=== PATIENT | male | born 1980 | race Caucasian/White ===

== ENCOUNTER 2024-01-23 06:50 | Outpatient (OUT) | payer OTHER, SELFPAY ==
[2024-01-23 07:03] LABS: Basophils Percent Auto 0.5 % (0.2-2.0); Eosinophils Absolute Auto 0.2 10^3/uL (0.0-0.7); Eosinophils Percent Auto 2.8 % (0.9-7.0); Hematocrit 43.7 % (42.0-54.0); Hemoglobin 14.1 g/dL (14.0-18.0); Immature Granulocytes Abs Auto 0.03 10^3/uL (0.00-0.03); Immature Granulocytes Pct Auto 0.5 % (0.0-0.5); Lymphocytes Absolute Auto 2.6 10^3/uL (1.2-3.8); Lymphocytes Percent Auto 44.8 % (20.5-60.0); Mean Corpuscular HGB Conc 32.3 g/dL (29.9-35.2); Mean Corpuscular Hemoglobin 27.4 pg (25.9-34.0); Mean Platelet Volume 8.7 fL (9.5-13.5); Monocytes Absolute Auto 0.4 10^3/uL (0.3-0.8); Monocytes Percent Auto 7.4 % (1.7-12.0); Neutrophils Absolute Auto 2.5 10^3/uL (1.4-6.5); Platelet Count 287 10^3/uL (150-450); Red Blood Count 5.14 10^6/uL (4.70-6.10); Red Cell Distribution Width 13.7 % (11.0-15.0); White Blood Count 5.7 10^3/uL (4.0-11.0)
[2024-01-23 07:35] LABS: Alanine Aminotransferase 33 U/L (16-63); Albumin Globulin Ratio 0.9; Albumin Level 3.7 g/dL (3.4-5.0); Alkaline Phosphatase 66 U/L (46-116); Aspartate Amino Transferase 20 U/L (15-37); BUN Creatinine Ratio 10.6; Bilirubin Total 0.7 mg/dL (0.2-1.0); Calcium 8.7 mg/dL (8.5-10.1); Carbon Dioxide 28.1 mmol/L (21.0-32.0); Chloride 102 mmol/L (98-107); Chol HDL Ratio 6.2; Cholesterol 216 mg/dL (<=200); Estimated GFR (African America >60 (>=60); Estimated GFR (Non-African Ame 55 (>=60); Globulin 4.3 g/dL; Glucose 101 mg/dL (74-106); HDL Cholesterol 35 mg/dL (40-60); Magnesium 2.3 mg/dL (1.8-2.4); Potassium 4.1 mmol/L (3.5-5.1); Sodium 140 mmol/L (136-145); Triglycerides 142 mg/dL (<=150); VLDL CHOLESTEROL 28.4 mg/dL
== END 2024-01-23 06:51 | disposition home or self-care (01) ==
LOC: LAB 06:51
PROVIDERS: Family Provider Family Medicine; PCP Nurse Practitioner Family; Visit Provider Nurse Practitioner Family
DX: Z00.00 Encounter for general adult medical examination without abnormal findings (principal); Z13.220 Encounter for screening for lipoid disorders; Z13.0 Encounter for screening for diseases of the blood and blood-forming organs and certain disorders involving the immune mechanism; Z13.228 Encounter for screening for other metabolic disorders; R25.2 Cramp and spasm
CPT/HCPCS: 36415; 80053; 80061; 83735; 85025

== ENCOUNTER 2024-02-16 15:32 | Outpatient (OUT) | payer OTHER, SELFPAY | END 2024-02-16 15:33 | disposition home or self-care (01) | LOC: SLEEP 15:32 | PROVIDERS: Family Provider Family Medicine; PCP Nurse Practitioner Family; Visit Provider Nurse Practitioner Family | DX: G47.33 Obstructive sleep apnea (adult) (pediatric) (principal) | CPT/HCPCS: 95806 ==

== ENCOUNTER 2024-03-28 19:35 | Outpatient (OUT) | payer OTHER, SELFPAY ==
--- OUTSIDE RECORDS SUMMARY | 2024-03-28 19:51 | XMS_ITS | CCD ---
Author Organization [facility] Medications Current Medications Medication Drug Class(es) Dates Sig (Normalized) Sig (Original) fluticasone propionate 0.05 mg/actuat metered dose nasal spray (3 sources) Corticosteroid Start: 12-07-2023 take 1 spray(s) nasal route twice daily Fluticasone Propionate (Flonase Allergy Relief) 50 mcg/actuation spray,suspension Active 1 SPRAY INTRANASAL Twice daily December 07, 2023 12:00am administer into each nostril ibuprofen 800 mg oral tablet (4 sources) Nonsteroidal Anti-inflammatory Drug Start: 10-22-2023 take 800 mg by mouth every eight hours Ibuprofen Active 800 MG PO Every 8 hours 08 06October 22, 2023 12:00am phentermine hydrochloride 37.5 mg oral tablet (3 sources) Sympathomimetic Amine Anorectic Start: 01-26-2024 End: 02-23-2024 take 1 tablet by mouth once daily 30 minutes after breakfast Phentermine (Adipex-P) 37.5 mg tablet Active 37.5 MG PO Daily February 23, 2024 3:44pm must administer 30 minutes before or 1-2 hours after breakfast Completed/Discontinued Medications Medication Drug Class(es) Dates Sig (Normalized) Sig (Original) amoxicillin 875 mg / clavulanate 125 mg oral tablet (3 sources) Penicillin-class Antibacterial Start: 12-07-2023 End: 01-26-2024 take 1 tablet by mouth twice daily Amoxicillin-Pot Clavulanate Discontinued 1 TAB PO Twice daily 29 05December 07, 2023 12:00am January 26, 2024 3:29pm tiZANidine 2 mg oral tablet (4 sources) Central alpha-2 Adrenergic Agonist Start: 10-22-2023 End: 01-26-2024 take 2 mg by mouth every eight hours Tizanidine Discontinued 2 MG PO Every 8 hours 08 06October 22, 2023 12:00am January 26, 2024 3:37pm Problems Problem Classification Problem Date Documented Da te Episodic/Chronic Coma; stupor; and brain damage (4 sources) Daytime somnolence; Translations: [Somnolence] 01-26-2024 Episodic Disorders of lipid metabolism (4 sources) Mixed hyperlipidemia; Translations: [Mixed hyperlipidemia] 01-26-2024 Chronic Other connective tissue disease (4 sources) Spasm; Translations: [Other muscle spasm] 10-22-2023 Episodic Other connective tissue disease (4 sources) Bilateral cramp of muscle of lower limbs; Translations: [Cramp and spasm] 10-22-2023 Episodic Other connective tissue disease (2 sources) Cramp and spasm; Translations: [Cramp of limb] 10-22-2023 Episodic Other connective tissue disease (2 sources) Other muscle spasm; Translations: [Spasm of muscle] 10-22-2023 Episodic Other lower respiratory disease (2 sources) Snoring; Translations: [Snoring] 12-07-2023 Episodic Other lower respiratory disease (4 sources) Snoring; Translations: [Other respiratory abnormalities] 12-07-2023 Episodic Other nutritional; endocrine; and metabolic disorders (5 sources) Body mass index 30+ - obesity; Translations: [Body mass index (BMI) 35.0-35.9, adult] 10-23-2023 Chronic Other nutritional; endocrine; and metabolic disorders (1 source) Body mass index (BMI) 35.0-35.9, adult; Translations: [Body Mass Index 35.0-35.9, adult] 10-22-2023 Chronic Other nutritional; endocrine; and metabolic disorders (2 sources) Obesity; Translations: [Obesity, unspecified] 01-26-2024 Chronic Other nutritional; endocrine; and metabolic disorders (2 sources) Body mass index (BMI) 34.0-34.9, adult; Translations: [Body Mass Index 34.0-34.9, adult] 01-26-2024 Chronic Other nutritional; endocrine; and metabolic disorders (2 sources) Obesity, unspecified; Translations: [Obesity, unspecified] 01-26-2024 Chronic Other screening for suspected conditions (not mental disorders or infectious disease) (18 sources) Patient encounter status; Translations: [Encounter for screening for diseases of the blood and blood-forming organs and certain disorders involving the immune mechanism] 10-22-2023 Episodic Other upper respiratory infections (6 sources) Maxillary sinusitis; Translations: [Chronic maxillary sinusitis] 12-07-2023 Chronic Otitis media and related conditions (4 sources) Perforation of tympanic membrane; Translations: [Unspecified perforation of tympanic membrane, unspecified ear] 12-07-2023 Episodic Residual codes; unclassified (2 sources) Frequent night waking; Translations: [Insomnia, unspecified] 01-26-2024 Episodic Residual codes; unclassified (2 sources) Insomnia, unspecified; Translations: [Other sleep disturbances] 01-26-2024 Episodic Spondylosis; intervertebral disc disorders; other back problems (6 sources) Backache; Translations: [Dorsalgia, unspecified] 10-22-2023 Episodic Results Test Name Value Interpretation Reference Range Facil ity Basophils Auto (Bld) [#/Vol] on 01-23-2024 Basophils (Bld) [#/Vol] 0.0 10 3/uL 0.0-0.1 [facility] Basophils/100 WBC Auto (Bld) on 01-23-2024 Basophils/100 WBC (Bld) 0.5 % 0.2-2.0 [facility] Cholesterol in LDL Calc [Mas s/Vol]on 01-23-2024 Cholesterol in LDL [Mass/Vol] 153.0 mg/dL [facility] Comment on above: <100 mg/dl [id number] 0-129 mg/dl NEAR OR ABOVE [id number] mg/dl BORDERLINE WRPT325-588 mg/dl HIGH>190 mg/dl VERY HIGH Cholesterol in VLDL Calc [Ma ss/Vol]on 01-23-2024 Cholesterol in VLDL [Mass/Vol] 28.4 mg/dL [facility] Eosinophils/100 WBC Auto (Bl d)on 01-23-2024 Eosinophils/100 WBC (Bld) 2.8 % 0.9-7.0 [facility] Erythrocyte distribution wid th Auto (RBC) [Ratio]on 01-23-2024 Erythrocyte distribution width (RBC) [Ratio] 13.7 % 11.0-15.0 [facility] Estimated glomerular filtrat ion rate (GFR) non- Americanon 01-23-2024 GFR/1.73 sq M.predicted among non-blacks MDRD (S/P/Bld) [Vol rate/Area] 55 mL/min/{1.73_m2} Low >=60 [facility] Globulin Calc (S) [Mass/Vol] on 01-23-2024 Globulin (S) [Mass/Vol] 4.3 g/dL [facility] Hematocrit Auto (Bld) [Volum e fraction]on 01-23-2024 Hematocrit (Bld) [Volume fraction] 43.7 % 42.0-54.0 [facility] Hemoglobin [Mass/volume] in Bloodon 01-23-2024 Hemoglobin (Bld) [Mass/Vol] 14.1 g/dL 14.0-18.0 [facility] Laboratory - Chemistry and C hemistry - challengeon 01-23-2024 Albumin [Mass/Vol] 3.7 g/dL 3.4-5.0 [facility] ALP [Catalytic activity/Vol] 66 U/L 46-116 [facility] ALT [Catalytic activity/Vol] 33 U/L 16-63 [facility] AST [Catalytic activity/Vol] 20 U/L 15-37 [facility] Bilirubin [Mass/Vol] 0.7 mg/dL 0.2-1.0 [facility] Calcium [Mass/Vol] 8.7 mg/dL 8.5-10.1 [facility] Chloride [Moles/Vol] 102 mmol/L 98-107 [facility] Cholesterol [Mass/Vol] 216 mg/dL High <=200 [facility] Cholesterol in HDL [Mass/Vol] 35 mg/dL Low 40-60 [facility] Comment on above: > or =60 mg/dl - LOW CARDIOVASCULAR RISK<40 mg/dl - HIGH CARDIOVASCULAR RISK CO2 [Moles/Vol] 28.1 mmol/L 21.0-32.0 [facility] Creatinine [Mass/Vol] 1.42 mg/dL High 0.70-1.30 [facility] GFR/1.73 sq M.predicted MDRD (S/P/Bld) [Vol rate/Area] mL/min/{1.73_m2} >=60 [facility] Glucose [Mass/Vol] 101 mg/dL 74-106 [facility] Magnesium [Mass/Vol] 2.3 mg/dL 1.8-2.4 [facility] Potassium [Moles/Vol] 4.1 mmol/L 3.5-5.1 [facility] Protein [Mass/Vol] 8.0 g/dL 6.4-8.2 [facility] Sodium [Moles/Vol] 140 mmol/L 136-145 [facility] Triglyceride [Mass/Vol] 142 mg/dL <=150 [facility] Urea nitrogen [Mass/Vol] 15.0 mg/dL 7.0-18.0 [facility] Urea nitrogen/Creatinine [Mass ratio] 10.6 mg/mg [facility] Laboratory - Hematology and Cell countson 01-23-2024 Immature granulocytes/100 WBC (Bld) 0.5 % 0.0-0.5 [facility] Leukocytes [#/volume] correc delmer for nucleated erythrocytes in Blood by Automated counon 01-23-2024 WBC corrected for nucl RBC Auto (Bld) [#/Vol] 5.7 10 3/uL 4.0-11.0 [facility] Lymphocytes Auto (Bld) [#/Vo l]on 01-23-2024 Lymphocytes (Bld) [#/Vol] 2.6 10 3/uL 1.2-3.8 [facility] Lymphocytes/100 WBC Auto (Bl d)on 01-23-2024 Lymphocytes/100 WBC (Bld) 44.8 % 20.5-60.0 [facility] MCH Auto (RBC) [Entitic mass ]on 01-23-2024 MCH (RBC) [Entitic mass] 27.4 pg 25.9-34.0 [facility] MCHC Auto (RBC) [Mass/Vol]on 01-23-2024 MCHC (RBC) [Mass/Vol] 32.3 g/dL 29.9-35.2 [facility] MCV Auto (RBC) [Entitic vol] on 01-23-2024 MCV (RBC) [Entitic vol] 85.0 fL 80.0-94.0 [facility] Monocytes Auto (Bld) [#/Vol] on 01-23-2024 Monocytes (Bld) [#/Vol] 0.4 10 3/uL 0.3-0.8 [facility] Monocytes/100 WBC Auto (Bld) on 01-23-2024 Monocytes/100 WBC (Bld) 7.4 % 1.7-12.0 [facility] Neutrophils Auto (Bld) [#/Vo l]on 01-23-2024 Neutrophils (Bld) [#/Vol] 2.5 10 3/uL 1.4-6.5 [facility] Neutrophils/100 WBC Auto (Bl d)on 01-23-2024 Neutrophils/100 WBC (Bld) 44.0 % 43.0-75.0 [facility] No Panel Informationon 01-22 Eosinophils # (Auto) 0.2 10 3/uL 0.0-0.7 [facility] Immature Granulocyte # (Auto) 0.03 10 3/uL 0.00-0.03 [facility] Platelet mean volume Auto (B ld) [Entitic vol]on 01-23-2024 Platelet mean volume (Bld) [Entitic vol] 8.7 fL Low 9.5-13.5 [facility] Platelets Auto (Bld) [#/Vol] on 01-23-2024 Platelets (Bld) [#/Vol] 287 10 3/uL 150-450 [facility] RBC Auto (Bld) [#/Vol]on RBC (Bld) [#/Vol] 5.14 10 6/uL 4.70-6.10 [facility] Serum or plasma albumin/glob ulin mass ratioon 01-23-2024 Albumin/Globulin [Mass ratio] 0.9 {ratio} [facility] Serum or plasma anion gap de terminationon 01-23-2024 Anion gap [Moles/Vol] 14.0 mmol[facility] Serum or plasma total choles terol/high density lipoprotein (HDL) cholesterol mass sylvain 01-23-2024 Cholesterol.total/Cho lesterol in HDL [Mass ratio] 6.2 {ratio} [facility] Comment on above: 3.3 - 4.4 LOW RISK4. 4 - 7.1 AVERAGE RISK7.1 - 11.0 MODERATE RISK>11.0 HIGH RISK Coding Summary.on 03-15-2021 Coding Summary. [id number] Gh0bWw+PGhlYWQ+PE1FV QMyJ79ixDZwnR5HN9mEB E3WQVTKDNNCRJ3EAA9jp VI1EItxB4MaewMy AhhwdKOvAX93IZs5IRG3 uRobZVopfP0ovHPsM4l1 ZhObMS31jC35PZswCDNu HdF0AfEtwflnqEIh M6nbGlRqiKXoXiw+PHRh YmxlIHdpZHRoPScxMDAl NbOswXrtJW0aTj7kFSQi LWNvbGxhcHNlOiBj z2foDJToCErbAJ5xyMpg B2PxqHJ2UGGjv5f3Bf34 dHI+XMWqSKQ7xBhdVDdt x011MoOun1vjTVX5 dKIcGTffKRS4F53eu9X2 GEVbVWPgAJB3sTU0gM2c dUsxnyhhP7SfsELvBkB8 SUH8cJRgfY0vbLnv ttcunI0bXbl+E72XQZ9X TJSUOJ4NRcd9O2BlJvyy dHI+IY92UILuYZ73fVXb vNTfe9trwJw0FlNn LXGkGUP8uHwdUEgkq1Eq XACeG85dhHPwi7N1GXPb pBkuzJEoUoRvlOK6zB1a LOjsmdchx8rldfcv Bxeuu5pmqm33bS17O87f PQdwEDDpYUJ0PKCvKMWo eDgyci3lrH5zMt4+IDxj w5txd8lheRa6IjFi DSTwkmIiuRjzZMI4k5Iw Tf03S1ZvwBfxg7VmEmh9 ey07rMUjg3P9eNY7OOek DOGtcQ9vTFqyAbP3 HYQpOaXjnP72nYUvFOwc Dy7lhTdmiLoiXD5wFITy ifppOTSgoI6aWLKzrTTt wRwtGI0gMLLifbgb u946NwWsQQY6MVVznAEw O1RhfS5vLzLoCKQePENb E2YngEVzCHvuP042UXoa CcJ0GGMqzgTtT1Xm FMCtoBrvRyO6x1W0Hj0J o4MvgqaaFJU7RErzLFN0 DwA2MpSdXaK6N7KtOdl0 WPNmnOcgAK1fS0Je ZAVhomibkbkfoJU9URZq XKKirO17iUPjFOriMe0q h9W7v250JFUdJCRdeY02 Rk4uhOeuJGYfzZTZ dR2jiqqgv1rvyauaWpEt HCFkNKe7QMw2QWCdnEwf WgDeVDL8LoY9EAK7mRCx dZ9naSivixjhpV0w Oyc+X19rtR0lTVV3QED8 sgttBAQyqbFtZY08IR98 H9QpMxeejFNyuCS+PGRp klWxxOllAG6qHqEl l5mrp1ZvWDydU8PhSTGo MWczBox6UBWbIAO4yAQ9 uG8qXDMfQHuxx9Y7tIO0 Z1ZccrEdxa4us3pe NDRvVCraE09xoPXqf9G8 SHYayRR2XPUwiCruRaTj cT56Ecu+LCUqzSlek3Xx Guafo2krv5nboFn8 IjMwJSIgdmFsaWduPSJ0 h5DcIl24I14bGHmfBDQm HQHxDQIwPPEzxWmmin1f pT2oBl7+PGNvbCB3 dEQ3vN8mKAZdKkW6UVrw L288WfVbiXYiHmcpz6zt r8cbwZr5EmCnBVOhltAz vZskDUX3n5EfDw11 L05gNDbdEZIdHQSwGTPx ILAnqEagkk6oqD8lGa7+ NB3ch3wddm99kL24oEE+ QQEjAJM7nIyrIWfk HAFgzW5xNSmbXaT4QLVc ReFgvI97qFLhUYliYw7b iJectDanXF9jIGCdyopt u889ZsRgd2tpEANe bMBiMVcxTEU6D84tc3B5 PJVfJBXrYUK7uHX3wF9n bGlnbjogbGVmdDsgdmVy hLrcMBxeCYikI473 IHRvcDsnPlBhdGllbnQg DaQxIQk3O2RlPel2GSMu hPjoTR9vrQAeQQamBo0a gTinuLliFX3nCQZa xzonx021ZjJkk3jtRBUx gMFqLFtmJEV5Z59bk7X8 KZXlZRXmAVG4sAC7sQ9v bGlnbjogbGVmdDsg biTroCyuLFirSUkrA885 IHRvcDsnPkJpcnRoIERh vVO7FG49ES87uVByf2D3 xHN5P0BbVZCgbjro jqdkoVJ1YZMsRKPirH01 Zk9rgJzfAw0sRJRyKYF9 UCDgoKHkY3KwhO1bYhKq PUWbVYLmP2DxfNIe QEyrP052DDdeGqG7LCLx thZxC6JqIBYdqZfnZcQ7 u6L3Xf1DG8I7OI19GR82 mTThv6P6zBY8C5Lt FKSrczttanfapZX5IGUp JYBzaY75Jx7oqQueJd3j XDScFML8YMBabUIcZ8Gl mY1vHsNuUWRuHQSp F6ThjLHjOAsaN052ZUrw GfI8HOSrukRkI5GzOONl cUseYiM5e9V2Fa7SFSn6 FA03NX35aXIua7U3 sZC7I1NlOVBdvaktacsj qBN9RXGyCAPwyL47Wi9q cKtpJm7zFHRaJDK3JDMi yTYnZ7EzxJ2qJaOw GMHnGEUmE8QbbRXuOQup Z297URpxBiS7KAUwzrZn N2PnTYSyqLapKxO4z6N8 Zi0VINFgAV08GGO8 lCA5FS47DE88R6YmOeov dGFibGU+PHRhYmxlIHdp ZHRoPScxMDAlJyBzdHls QN9hCw9bWPQeQFLn qGqkmOHsJcKoj0bzJZLe ERfyQT5zjPoqB4UxsHX4 PBGzc7o7Ew54Z37rV9Fz dXA+DMUyjCY5zJS6 vT3pGnXfMjB2AGaiK218 QyOnxIBjZoahu9avl2or gXe3TeH9LMQhejTafCkt SHC7p2TjFv11Q58u IHdpZHRoPSIxNSUiIHZh gWfhnp5hpF2hFp3+PGNv hOX7hTX4xQ3vTdPfQhE4 MFvmX326QdKedCCq Zpjhc5joq9sxbIr4YnOb PCJhyaPpsVegUCY6m9Wg Lu63U8CviNaou6QpFce0 kx18oZOuc1T7hGJ2 D7PxRBVvbiykuUMuwTho BG5gPGFmaspzZQWkcS4n MTUlV8n0WzQzIzG1ZBsh Q7UyttO9RASmyVQw YAioHOT1Y21bu0F5APSa UMAaSOO8bUI8bG8fvMaq bjogbGVmdDsgdmVydGlj EVikVUdaW951ETTp fIilUQMmoW3qVJJrpNHx tGoiFP4hWWLbrzdvNpwH E2YrNJ6DOZHMUHs5C8By Pys1COHhkZqxIR0r nMScVAddGa1llBtgiWhw YC1eIMMibcbjAPDefR7f QSBvgPYhnCgnOD7mASTv uxzji260IuRhHPS1 FEBzeKMdJ9AszS9vTyRo DENxRNMiL4DadDMxFIga I908IGqnWpE2RDShnsXa R8AhXQOznRltOhK7 r8U7If7kVV5rZz0sYEep TM57DW68gWUck4B1fYB2 L4AgEQHbuwcskfnxvXT3 LZNxZEUqzI38pAOc TMlfAq3wd7G1c308MZLo HUVinD04Uq5xrVuuTFGc tGUVvE5tbskzb5piqbqj DyQdNPBzXSi1IYl6 FZYwyFmcKkYqBKO7HfQ8 EFY9lLOfhQ1jrKkunqlj oW7fKmk+MzkgWWVhcnM8 G0NfXkb2WBTvpEhw PB3zeXRwCBgkBf0crCin rFieRX0dAJTosiwuLEYu vK9hYXWwmSYtsWcfBH4q PPAjvgrcf200EdGu YQI7QIHpbKIvE8GjhO5v SaWeFEBvHOTgF2VphKQa ZXsdN081MSsoDeI5PRIl xmHeV1FlDCLeeQaf RvL1i9G8Uh8RQNruJS93 UM04qWDgl3V5xGE2B2Ba WSXexcgzejeefKQ8KJUl HWHymR96mQGjDEuu Ax4rg3K4t527OQUlUNAq bO84Tc6tePlcNTJxaCPY gK2qyurxm6nsmpgjQsQv CGXiPDd7LTt2RYIm iSkaVcSoTQI6IxB8UXO7 nLNtoM6phClyrzzqvW7j Oyc+RJSnPUOja2Tbe3Mq FK33EI68W3YdOeom dGFibGU+PHRhYmxlIHdp ZHRoPScxMDAlJyBzdHls FN8pHf6iSTBqDPRqwBuz pEAeBiEia3gyWDHt UPlbYK7ylKggL9TgzJB0 URFqh4f5Pb30W19oH0Rq dXA+SNMkdTR2uPK9xR1l JyYkXwU7CAgkE421 DuErgKZlPrrwh4sdz2cs vIe6XhXdDHKhugNhiErv HDR0g8UmPd99F65uFWvy ZHRoPSIyMCUiIHZh lUwlop7tuR7aQu0+PGNv lIB2lMW9tC0uXyGkAaF1 AJvcV010DmIhaBLxDfuo L92lF0ZjnOA+PHRy Gry7GIAkwEvfSV6mlENg VGpuHt1wZWP4BjCxUpOy CEloE8KgQBRomzayumzq xQM6DKTpAAFbmY11 St6dmTxcIf3pDPKmUSD6 KPKlbLUeP6BikU4zUjPx DDPtYJDsA1NquZXdEZeb X432HEfhLgW5VLTk cpKmS7MnDRFixUjaCsI8 p3J1Iz9HhBuyvRKuSX3f FyFuGBz8Y3RhCzo5XKGd sOglMY4ptLPwISda Tz8jcVobhJrdUJ5aFLZa pilti748GuKei2ijERVa vDJbYPepTKX8E43dg6T3 EEWkIJItSVJ4mQD7 pY8khAtiutbrkBUgoHhp snYrkXubQQqpBXssS632 JRIddFjoExXFGrx7P4Tf Apf8KWCfkHfaYI0e gSWeDCrgAr0htOwonYhe EB3oMMUrnqrpw809ThJm u0rkDEVuwCKvIBqgPUG8 O93nh0Q3TAGzNAIx HQV3yKO3yK0xbLccspie bGVmdDsgdmVydGljYWwt FMzpL258KGWtkOqyLy5P Aal1F2WnFhr0CBFy wSpcSV2maGXpBPypHa4d vUrdgSmlNZ3vHLWzhkpc y894HkMoh2rzUWObrQEx BVigSGU5K82bt5R0 BCPzOFSbHTH0yQE7fL6h bGlnbjogbGVmdDsgdmVy yLdmALteMSqcI123VCLa cDsnPlBheWVyOjwv dGQ+OD80je80Y4VlFnkl Tsp2UCScUTD0iOM1oO4h EQYzNVwid7T0oEL6Q2Oe mrCkco4kd4paTVXw ZTog (more content not included)... Normal [facility] Consent for Treatmenton Consent for Treatment [id number] 2#[id number] Normal [facility] COVID-19 (MC)on 03-08-2021 SARS-CoV-2 (COVID-19) RNA EVANGELISTA+probe Ql (Unsp spec) Detected Abnormal Not Detected [facility] Comment on above: Result Comment: Faxe d to and [facility] 03/08/2021 17:54:52 EDT ALL This test result should be correlated with clinical presentations and medical history by a healthcare provider to determine its clinical significance. This assay was performed by a reverse transcriptase real-time polymerase chain reaction (rt PCR) method on the [employer] system. This test has been authorized only for the detection of nucleic acid from SARS-CoV-2, not for any other viruses or pathogens. This test has not been FDA cleared or approved. This test has been authorized by FDA under an Emergency Use Authorization (EUA). This test is only authorized for the duration of time the declaration on that circumstances exist justifying the authorization emergency use of in vitro diagnostic tests for detection and/or diagnosis of COVID-19 infection under section 564 (b) (1) of the Act, 21 U.S.C. 360 bbb-3 (b) (1), unless authorization is terminated or revoked sooner. Performed By: #### 2 [id number] #### [address] [address] SARS-CoV-2 (COVID-19) RNA EVANGELISTA+probe Ql (Unsp spec) Pass Normal Pass [facility] Comment on above: Performed By: #### 2 [id number] #### [facility] [address] [place] [address] Specimen source Nom (Unsp spec) Nasal Normal [facility] Comment on above: Performed By: #### 2 [id number] #### [facility] [address] [place] [address] COVID-19 ([facility]on 03-07-2021 Employed in Healthcare Unknown Normal [facility] Comment on above: Performed By: #### 2 [id number] #### [facility] [address] [place] [address] First Test Unknown Normal [facility] Comment on above: Performed By: #### 2 [id number] #### [facility] [address] [place] [address] Hospitalized? Unknown Normal [facility] Comment on above: Performed By: #### 2 [id number] #### [facility] [address] [place] [address] ICU Unknown Normal [facility] Comment on above: Performed By: #### 2 [id number] #### [facility] [address] [place] [address] ? NO Normal [facility] Comment on above: Performed By: #### 2 [id number] #### [facility] [address] [place] [address] Resides in a Congregate Care Setting Unknown Normal [facility] Comment on above: Performed By: #### 2 [id number] #### [facility] [address] [place] [address] Symptomatic as defined by CDC YES Normal [facility] Comment on above: Performed By: #### 2 [id number] #### [facility] [address] [place] [address] Vital Signs Date Time Vital Sign Value Performing Clinician Ab mullins 02-23-2024 15:10-0400 Body height 191.77 cm [facility] 02-23-2024 15:10-0400 Body mass index (BMI) [Ratio] 33.9 kg/m2 [facility] 02-23-2024 15:10-0400 Body weight 124.73 kg [facility] 02-23-2024 15:10-0400 Diastolic blood pressure 72 mm[Hg] [facility] 02-23-2024 15:10-0400 Heart rate 94 /min [facility] 02-23-2024 15:10-0400 SaO2% (BldA) [Mass fraction] 98 % [facility] 02-23-2024 15:10-0400 Systolic blood pressure 124 mm[Hg] [facility] 01-26-2024 15:29-0400 Body height 191.77 cm [facility] 01-26-2024 15:29-0400 Body mass index (BMI) [Ratio] 34.9 kg/m2 [facility] 01-26-2024 15:29-0400 Body weight 128.36 kg [facility] 01-26-2024 15:29-0400 Diastolic blood pressure 74 mm[Hg] [facility] 01-26-2024 15:29-0400 Heart rate 83 /min [facility] 01-26-2024 15:29-0400 SaO2% (BldA) [Mass fraction] 99 % [facility] 01-26-2024 15:29-0400 Systolic blood pressure 122 mm[Hg] [facility] 12-07-2023 09:21-0400 Body height 191.77 cm [facility] 12-07-2023 09:21-0400 Body mass index (BMI) [Ratio] 34.4 kg/m2 [facility] 12-07-2023 09:21-0400 Body weight 126.55 kg [facility] 12-07-2023 09:21-0400 Diastolic blood pressure 82 mm[Hg] [facility] 12-07-2023 09:21-0400 Heart rate 77 /min [facility] 12-07-2023 09:21-0400 SaO2% (BldA) [Mass fraction] 97 % [facility] 12-07-2023 09:21-0400 Systolic blood pressure 128 mm[Hg] [facility] 10-22-2023 14:25-0400 Body height 191.77 cm [facility] 10-22-2023 14:25-0400 Body mass index (BMI) [Ratio] 35 kg/m2 [facility] 10-22-2023 14:25-0400 Body weight 128.82 kg [facility] 10-22-2023 14:25-0400 Diastolic blood pressure 84 mm[Hg] [facility] 10-22-2023 14:25-0400 Heart rate 95 /min [facility] 10-22-2023 14:25-0400 SaO2% (BldA) [Mass fraction] 96 % [facility] 10-22-2023 14:25-0400 Systolic blood pressure 124 mm[Hg] [facility] Encounters Encounter Date Encounter Type Care Provider Facility Start: 02-23-2024 End: 02-23-2024 ambulatory [facility] Work Phone: Start: 02-23-2024 End: 02-23-2024 Patient encounter procedure [facility] Physician [facility] Work Phone: Start: 01-26-2024 End: 01-26-2024 ambulatory [facility] Work Phone: Start: 01-26-2024 End: 01-26-2024 Patient encounter procedure [facility] Phys[facility] Work Phone: Start: 01-23-2024 Non-patient / Non-visit [facility] Work Phone: Start: 12-07-2023 End: 12-07-2023 ambulatory [facility] Work Phone: Start: 12-07-2023 End: 12-07-2023 Patient encounter procedure [facility] Physician [facility] Work Phone: Start: 10-22-2023 Patient encounter status [facility] Start: 10-22-2023 End: 10-22-2023 ambulatory [facility] Work Phone: Start: 10-22-2023 End: 10-22-2023 Encounter for general adult medical examination without abnormal findings [facility] Start: 10-22-2023 End: 10-22-2023 Patient encounter procedure [facility] Work Phone: Plan of Treatment Date Care Activity Detail Author Comprehensive metabo lic 1999 panel - Serum or Plasma [facility] Payers Date Payer Category Payer Policy ID Unknown [employer] [id number] Social History Date Type Detail Facility Start: 10-22-2023 End: 01-26-2024 Tobacco smoking status NHIS Ex-smoker (finding) [facility] Start: 1980 Sex Assigned At Male F [facility] Evaluation note Note Date & Type Note Facility Evaluation note Diagnosis Onset Date Back pain acute Bilateral leg cramps acute Muscle spasm acute Screening for deficiency anemia acute Screening for lipid disorders acute Screening for metabolic disorder acute Wellness examination acute [facility] [facility] Work Phone: Evaluation note Note Date & Type Note Facility Evaluation note Diagnosis Onset Date Back pain acute Bilateral leg cramps acute BMI 35.0-35.9,adult acute Muscle spasm acute Screening for deficiency anemia acute Screening for lipid disorders acute Screening for metabolic disorder acute Wellness examination acute Maxillary sinusitis acute [facility] Work Phone: Evaluation note Note Date & Type Note Facility Evaluation note Diagnosis Onset Date Loud snoring acute Maxillary sinusitis acute Ruptured ear drum acute BMI 34.0-34.9,adult acute Daytime somnolence acute Frequent nocturnal awakening acute Loud snoring acute Mixed hyperlipidemia acute Obese acute [facility] Work Phone: Summary Purpose Family History No Family History Records Found Advance Directives Advance Directive Response Recorded Date/ Time Advance Directives No October 14 24 5:30pm Chief Complaint and Reason for Visit Chief Complaint Wellness Reason for Visit Back pain Bilateral leg cramps Muscle spasm Screening for deficiency anemia Screening for lipid disorders Screening for metabolic disorder Wellness examination Chief Complaint Wellness sick for 1.5 weeks, sleep apena? Reason for Visit Back pain Bilateral leg cramps BMI 35.0-35.9,adult Muscle spasm Screening for deficiency anemia Screening for lipid disorders Screening for metabolic disorder Wellness examination Maxillary sinusitis Chief Complaint sick for 1.5 weeks, sleep apena? extremely fatigue Reason for Visit Loud snoring Maxillary sinusitis Ruptured ear drum BMI 34.0-34.9,adult Daytime somnolence Frequent nocturnal awakening Loud snoring Mixed hyperlipidemia Obese Chief Complaint sick for 1.5 weeks, sleep apena? extremely fatigue 4 week f/u Reason for Visit Loud snoring Maxillary sinusitis Ruptured ear drum BMI 34.0-34.9,adult Daytime somnolence Frequent nocturnal awakening Loud snoring Mixed hyperlipidemia Obese Additional Source Comments (unrecognized sect ion and content) No Status Records Found INFORMATION SOURCE (unrecogn ized section and content) DATE CREATED AUTHOR 03/16/2021 Joseph Bellamy [facility] Care Teams (unrecognized sec tion and content) Team Status: Active Member Role Status Dates Ana Elmore APRN TITLE SPECIALIST-C Primary Care Provider Active Team Status: Inactive Member Role Status Dates Ana Elmore APRN TITLE SPECIALIST-C Primary Care Provider, Attending Provider Active Start: October 22, 2023 End: October 22, 2023 Team Status: Inactive Member Role Status Dates Ana Elmore APRN TITLE SPECIALIST-C Primary Care Provider, Attending Provider Active Start: December 07, 2023 End: December 07, 2023 Team Status: Active Member Role Status Dates Ana Elmore APRN TITLE SPECIALIST-C Primary Care Provider, Attending Provider Active Start: January 23, 2024 Team Status: Inactive Member Role Status Dates Ana Elmore APRN TITLE SPECIALIST-C Primary Care Provider, Attending Provider Active Start: January 26, 2024 End: January 26, 2024 Team Status: Inactive Member Role Status Dates Ana Elmore APRN TITLE SPECIALIST-C Primary Care Provider, Attending Provider Active Start: February 23, 2024 End: February 23, 2024 Goals (unrecognized section and content) Goals may be documented in a n alternate sectionGoals may be documented in an alternate sectionGoals may be documented in an alternate sectionGoals may be documented in an alternate section FOR RECORDS PERTAINING TO PATIENTS WHO ARE OR HAVE BEEN ENROLLED IN A CHEMICAL DEPENDENCY/SUBSTANCEABUSE PROGRAM, SOME INFORMATION MAY BE OMITTED. This clinical summary was aggregated from multiple sources. Caution should be exercised in using it in the provision of clinical care. This summary normalizes information from multiple sources, and as a consequence, information in this document may materially change the coding, format and clinical context of patient data. In addition, data may be omitted in some cases. CLINICAL DECISIONS SHOULD BE BASED ON THE PRIMARY CLINICAL RECORDS. [facility] provides no warranty or guarantee of the accuracy or completeness of information in this document.
== END 2024-03-28 19:36 | disposition home or self-care (01) ==
LOC: SLEEP 19:49
PROVIDERS: Family Provider Family Medicine; PCP Nurse Practitioner Family; Visit Provider Nurse Practitioner Family
DX: G47.33 Obstructive sleep apnea (adult) (pediatric) (principal)
CPT/HCPCS: 95811

== ENCOUNTER 2024-12-10 06:44 | Outpatient (OUT) | payer OTHER, SELFPAY ==
[2024-12-10 07:01] LABS: Basophils Percent Auto 0.6 % (0.2-2.0); Eosinophils Absolute Auto 0.1 10^3/uL (0.0-0.7); Eosinophils Percent Auto 1.9 % (0.9-7.0); Hematocrit 43.4 % (42.0-54.0); Hemoglobin 14.2 g/dL (14.0-18.0); Immature Granulocytes Abs Auto 0.06 10^3/uL (0.00-0.03); Immature Granulocytes Pct Auto 1.2 % (0.0-0.5); Lymphocytes Absolute Auto 1.8 10^3/uL (1.2-3.8); Lymphocytes Percent Auto 35.7 % (20.5-60.0); Mean Corpuscular HGB Conc 32.7 g/dL (29.9-35.2); Mean Corpuscular Hemoglobin 27.5 pg (25.9-34.0); Mean Corpuscular Volume 84.1 fL (80.0-94.0); Mean Platelet Volume 8.7 fL (9.5-13.5); Monocytes Absolute Auto 0.7 10^3/uL (0.3-0.8); Monocytes Percent Auto 12.8 % (1.7-12.0); Neutrophils Absolute Auto 2.5 10^3/uL (1.4-6.5); Neutrophils Percent Auto 47.8 % (43.0-75.0); Platelet Count 311 10^3/uL (150-450); Red Blood Count 5.16 10^6/uL (4.70-6.10); Red Cell Distribution Width 14.1 % (11.0-15.0); White Blood Count 5.2 10^3/uL (4.0-11.0)
[2024-12-10 08:14] LABS: Alanine Aminotransferase 26 U/L (16-63); Albumin Level 3.9 g/dL (3.4-5.0); Alkaline Phosphatase 77 U/L (46-116); Anion Gap 13.4; Aspartate Amino Transferase 17 U/L (15-37); BUN Creatinine Ratio 12.3; Bilirubin Total 0.5 mg/dL (0.2-1.0); Calcium 9.4 mg/dL (8.5-10.1); Carbon Dioxide 28.6 mmol/L (21.0-32.0); Chloride 103 mmol/L (98-107); Chol HDL Ratio 5.4; Cholesterol 210 mg/dL (<=200); Estimated GFR (African America >60 (>=60 mL/min/1.73m^2); Estimated GFR (Non-African Ame 50 (>=60 mL/min/1.73m^2); Globulin 3.8 g/dL; Glucose 98 mg/dL (74-106); HDL Cholesterol 39 mg/dL (40-60); Sodium 141 mmol/L (136-145); Total Protein 7.7 g/dL (6.4-8.2); Triglycerides 134 mg/dL (<=150); VLDL CHOLESTEROL 26.8 mg/dL
== END 2024-12-10 06:45 | disposition home or self-care (01) ==
PROVIDERS: Family Provider Family Medicine; PCP Nurse Practitioner Family; Visit Provider Nurse Practitioner Family
DX: Z00.00 Encounter for general adult medical examination without abnormal findings (principal); E78.2 Mixed hyperlipidemia
CPT/HCPCS: 36415; 80053; 80061; 85025

== ENCOUNTER 2025-02-16 14:50 | Outpatient (OUT) | payer OTHER, SELFPAY ==
--- NOTE | 2025-02-16 14:52 | US_ITS ---
The [address] [address] Patient Name: ENDY BAXTER MRN: [id number] date: 1980 Sex: M Assigned Patient Location: [place] Current Patient Location: [place] Accession/Order Number: [id number] Exam Date: 02/16/2025 20:50 Report Date: 02/16/2025 20:52 At the request of: JYOTHI ELLINGTON Procedure: US renal BI Bilateral Renal Ultrasound HISTORY: Stage III kidney disease COMPARISON: None RIGHT kidney measures 10.2 cm cm. LEFT kidney measures 12.3 cm cm. Hydronephrosis: Mild bilateral pelvocaliectasis. RENAL STONE: No shadowing renal calculus is seen. RENAL LESIONS: No renal lesion identified. URINARY BLADDER: Nondistention of the urinary bladder. Volume 986 cc. REPRODUCTIVE STRUCTURES Not assessed IMPRESSION : Mild bilateral pelvocaliectasis. Impression dictated by: Dorian Dawson M.D. 02/16/2025 8:52 PM Dictation Location: [place] [address] Electronically authenticated by: [id number] Y Date: 02/16/2025 20:52
== END 2025-02-16 14:51 | disposition home or self-care (01) ==
LOC: US 14:50
PROVIDERS: Family Provider Family Medicine; PCP Nurse Practitioner Family; Visit Provider Internal Medicine
DX: G47.30 Sleep apnea, unspecified (principal); Z68.33 Body mass index [BMI] 33.0-33.9, adult; E78.2 Mixed hyperlipidemia; N18.30 Chronic kidney disease, stage 3 unspecified; R80.9 Proteinuria, unspecified; Q62.39 Other obstructive defects of renal pelvis and ureter
CPT/HCPCS: 76775

== ENCOUNTER 2025-03-04 06:48 | Outpatient (OUT) | payer OTHER, SELFPAY ==
--- OUTSIDE RECORDS SUMMARY | 2025-03-04 06:52 | XMS_ITS | CCD ---
Author Organization [facility] Care Team Providers Care Shingle Inspector Name Role Phone Ana Elmore APRN Attending Provider Ana Elmore Admitting Unavailable Ana Elmore Attending Unavailable NO FAMILY, PHYSICIAN Primary Care Unavailable Ana Elmore APRN Primary Care Provider Ana Elmore APRN Attending Provider [phone] NO FAMILY, PHYSICIAN Primary Care Provider Joselito Kulkarni MD Attending Provider Medications Current Medications Medication Drug Class(es) Dates Sig (Normalized) Sig (Original) phentermine hydrochloride 37.5 mg oral tablet (20 sources) Sympathomimetic Amine Anorectic Start: 01-26-2024 End: 01-05-2025 take 1 tablet by mouth once daily 30 minutes after breakfast Phentermine (Adipex-P) 37.5 mg tablet Active 37.5 MG PO Daily January 05, 2025 4:03pm must administer 30 minutes before or 1-2 hours after breakfast Complies with drug therapy Completed/Discontinued Medications Medication Drug Class(es) Dates Sig (Normalized) Sig (Original) amoxicillin 875 mg / clavulanate 125 mg oral tablet (6 sources) Penicillin-class Antibacterial Start: 12-07-2023 End: 01-26-2024 take 1 tablet by mouth twice daily Amoxicillin-Pot Clavulanate 875-125 mg tablet Discontinued 1 TAB PO Twice daily 29 05December 07, 2023 12:00am January 26, 2024 3:29pm fluticasone propionate 0.05 mg/actuat metered dose nasal spray (6 sources) Corticosteroid Start: 12-07-2023 End: 12-05-2024 take 1 spray(s) nasal route twice daily Fluticasone Propionate (Flonase Allergy Relief) 50 mcg/actuation spray,suspension Discontinued 1 SPRAY INTRANASAL Twice daily 16 December 07, 2023 12:00am December 05, 2024 2:35pm administer into each nostril ibuprofen 800 mg oral tablet (7 sources) Nonsteroidal Anti-inflammatory Drug Start: 10-22-2023 End: 12-05-2024 take 1 tablet by mouth every eight hours Ibuprofen 800 mg tablet Discontinued 800 MG PO Every 8 hours 08 06October 22, 2023 12:00am December 05, 2024 2:35pm tiZANidine 2 mg oral tablet (7 sources) Central alpha-2 Adrenergic Agonist Start: 10-22-2023 End: 01-26-2024 take 1 tablet by mouth every eight hours as needed Tizanidine 2 mg tablet Discontinued 2 MG PO Every 8 hours as needed for muscle spasticity 08 06October 22, 2023 12:00am January 26, 2024 3:37pm Problems Problem Classification Problem Date Documented Da te Episodic/Chronic Chronic kidney disease (2 sources) Chronic kidney disease stage 3; Translations: [Stage 3 chronic kidney disease] 02-02-2025 Chronic Coma; stupor; and brain damage (7 sources) Daytime somnolence; Translations: [Somnolence] 01-26-2024 Episodic Disorders of lipid metabolism (11 sources) Mixed hyperlipidemia; Translations: [Mixed hyperlipidemia] 01-26-2024 Chronic Genitourinary symptoms and ill-defined conditions (5 sources) Unspecified abnormal findings in urine; Translations: [Proteinuria] Onset: 12-05-2024 02-02-2025 Episodic Other connective tissue disease (7 sources) Spasm; Translations: [Other muscle spasm] 10-22-2023 Episodic Other connective tissue disease (7 sources) Bilateral cramp of muscle of lower limbs; Translations: [Cramp and spasm] 10-22-2023 Episodic Other connective tissue disease (2 sources) Cramp and spasm; Translations: [Cramp of limb] 10-22-2023 Episodic Other connective tissue disease (2 sources) Other muscle spasm; Translations: [Spasm of muscle] 10-22-2023 Episodic Other lower respiratory disease (5 sources) Snoring; Translations: [Snoring] 12-07-2023 Episodic Other lower respiratory disease (4 sources) Snoring; Translations: [Other respiratory abnormalities] 12-07-2023 Episodic Other nutritional; endocrine; and metabolic disorders (9 sources) Body mass index 30+ - obesity; Translations: [Body mass index (BMI) 35.0-35.9, adult] 10-23-2023 Chronic Other nutritional; endocrine; and metabolic disorders (1 source) Body mass index (BMI) 35.0-35.9, adult; Translations: [Body Mass Index 35.0-35.9, adult] 10-22-2023 Chronic Other nutritional; endocrine; and metabolic disorders (5 sources) Obesity; Translations: [Obesity, unspecified] 01-26-2024 Chronic Other nutritional; endocrine; and metabolic disorders (2 sources) Body mass index (BMI) 34.0-34.9, adult; Translations: [Body Mass Index 34.0-34.9, adult] 01-26-2024 Chronic Other nutritional; endocrine; and metabolic disorders (2 sources) Obesity, unspecified; Translations: [Obesity, unspecified] 01-26-2024 Chronic Other nutritional; endocrine; and metabolic disorders (6 sources) Obese class II; Translations: [Class 2 obesity] 12-05-2024 Chronic Other screening for suspected conditions (not mental disorders or infectious disease) (20 sources) Patient encounter status; Translations: [Encounter for screening for diseases of the blood and blood-forming organs and certain disorders involving the immune mechanism] 10-22-2023 Episodic Other upper respiratory infections (9 sources) Maxillary sinusitis; Translations: [Chronic maxillary sinusitis] 12-07-2023 Chronic Otitis media and related conditions (7 sources) Perforation of tympanic membrane; Translations: [Unspecified perforation of tympanic membrane, unspecified ear] 12-07-2023 Episodic Comment on above: Right Residual codes; unclassified (4 sources) Sleep apnea; Translations: [Sleep apnea, unspecified] 12-05-2024 Chronic Residual codes; unclassified (5 sources) Frequent night waking; Translations: [Insomnia, unspecified] 01-26-2024 Episodic Residual codes; unclassified (2 sources) Insomnia, unspecified; Translations: [Other sleep disturbances] 01-26-2024 Episodic Spondylosis; intervertebral disc disorders; other back problems (9 sources) Backache; Translations: [Dorsalgia, unspecified] 10-22-2023 Episodic Results Test Name Value Interpretation Reference Range Facil ity Basophils Auto (Bld) [#/Vol] on 12-10-2024 Basophils (Bld) [#/Vol] 0.0 10 3/uL 0.0-0.1 [facility] Basophils/100 WBC Auto (Bld) on 12-10-2024 Basophils/100 WBC (Bld) 0.6 % 0.2-2.0 [facility] Cholesterol in LDL Calc [Mas s/Vol]on 12-10-2024 Cholesterol in LDL [Mass/Vol] 145.0 mg/dL [facility] Comment on above: <100 mg/dl [id number] 0-129 mg/dl NEAR OR ABOVE [id number] mg/dl BORDERLINE [id number] mg/dl HIGH>190 mg/dl VERY HIGH Cholesterol in VLDL Calc [Ma ss/Vol]on 12-10-2024 Cholesterol in VLDL [Mass/Vol] 26.8 mg/dL [facility] Eosinophils/100 WBC Auto (Bl d)on 12-10-2024 Eosinophils/100 WBC (Bld) 1.9 % 0.9-7.0 [facility] Erythrocyte distribution wid th Auto (RBC) [Ratio]on 12-10-2024 Erythrocyte distribution width (RBC) [Ratio] 14.1 % 11.0-15.0 [facility] Estimated glomerular filtrat ion rate (GFR) non- Americanon 12-10-2024 GFR/1.73 sq M.predicted among non-blacks MDRD (S/P/Bld) [Vol rate/Area] 50 mL/min/{1.73_m2} Low >=60 mL/min/1.73m 2 [facility] Globulin Calc (S) [Mass/Vol] on 12-10-2024 Globulin (S) [Mass/Vol] 3.8 g/dL [facility] Hematocrit Auto (Bld) [Volum e fraction]on 12-10-2024 Hematocrit (Bld) [Volume fraction] 43.4 % 42.0-54.0 [facility] Hemoglobin [Mass/volume] in Bloodon 12-10-2024 Hemoglobin (Bld) [Mass/Vol] 14.2 g/dL 14.0-18.0 [facility] Laboratory - Chemistry and C hemistry - challengeon 12-10-2024 Albumin [Mass/Vol] 3.9 g/dL 3.4-5.0 [facility] ALP [Catalytic activity/Vol] 77 U/L 46-116 [facility] ALT [Catalytic activity/Vol] 26 U/L 16-63 [facility] AST [Catalytic activity/Vol] 17 U/L 15-37 [facility] Bilirubin [Mass/Vol] 0.5 mg/dL 0.2-1.0 [facility] Calcium [Mass/Vol] 9.4 mg/dL 8.5-10.1 [facility] Chloride [Moles/Vol] 103 mmol/L 98-107 [facility] Cholesterol [Mass/Vol] 210 mg/dL High <=200 [facility] Cholesterol in HDL [Mass/Vol] 39 mg/dL Low 40-60 [facility] Comment on above: > or =60 mg/dl - LOW CARDIOVASCULAR RISK<40 mg/dl - HIGH CARDIOVASCULAR RISK CO2 [Moles/Vol] 28.6 mmol/L 21.0-32.0 [facility] Creatinine [Mass/Vol] 1.54 mg/dL High 0.70-1.30 [facility] GFR/1.73 sq M.predicted MDRD (S/P/Bld) [Vol rate/Area] mL/min/{1.73_m2} >=60 mL/min/1.73m 2 [facility] Glucose [Mass/Vol] 98 mg/dL 74-106 [facility] Potassium [Moles/Vol] 4.0 mmol/L 3.5-5.1 [facility] Protein [Mass/Vol] 7.7 g/dL 6.4-8.2 [facility] Sodium [Moles/Vol] 141 mmol/L 136-145 [facility] Triglyceride [Mass/Vol] 134 mg/dL <=150 [facility] Urea nitrogen [Mass/Vol] 19.0 mg/dL High 7.0-18.0 [facility] Urea nitrogen/Creatinine [Mass ratio] 12.3 mg/mg [facility] Laboratory - Hematology and Cell countson 12-10-2024 Immature granulocytes/100 WBC (Bld) 1.2 % High 0.0-0.5 [facility] Leukocytes [#/volume] correc delmer for nucleated erythrocytes in Blood by Automated counon 12-10-2024 WBC corrected for nucl RBC Auto (Bld) [#/Vol] 5.2 10 3/uL 4.0-11.0 [facility] Lymphocytes Auto (Bld) [#/Vo l]on 12-10-2024 Lymphocytes (Bld) [#/Vol] 1.8 10 3/uL 1.2-3.8 [facility] Lymphocytes/100 WBC Auto (Bl d)on 12-10-2024 Lymphocytes/100 WBC (Bld) 35.7 % 20.5-60.0 [facility] MCH Auto (RBC) [Entitic mass ]on 12-10-2024 MCH (RBC) [Entitic mass] 27.5 pg 25.9-34.0 [facility] MCHC Auto (RBC) [Mass/Vol]on 12-10-2024 MCHC (RBC) [Mass/Vol] 32.7 g/dL 29.9-35.2 [facility] MCV Auto (RBC) [Entitic vol] on 12-10-2024 MCV (RBC) [Entitic vol] 84.1 fL 80.0-94.0 [facility] Monocytes Auto (Bld) [#/Vol] on 12-10-2024 Monocytes (Bld) [#/Vol] 0.7 10 3/uL 0.3-0.8 [facility] Monocytes/100 WBC Auto (Bld) on 12-10-2024 Monocytes/100 WBC (Bld) 12.8 % High 1.7-12.0 [facility] Neutrophils Auto (Bld) [#/Vo l]on 12-10-2024 Neutrophils (Bld) [#/Vol] 2.5 10 3/uL 1.4-6.5 [facility] Neutrophils/100 WBC Auto (Bl d)on 12-10-2024 Neutrophils/100 WBC (Bld) 47.8 % 43.0-75.0 [facility] No Panel Informationon 12-10 Eosinophils # (Auto) 0.1 10 3/uL 0.0-0.7 [facility] Immature Granulocyte # (Auto) 0.06 10 3/uL High 0.00-0.03 [facility] Platelet mean volume Auto (B ld) [Entitic vol]on 12-10-2024 Platelet mean volume (Bld) [Entitic vol] 8.7 fL Low 9.5-13.5 [facility] Platelets Auto (Bld) [#/Vol] on 12-10-2024 Platelets (Bld) [#/Vol] 311 10 3/uL 150-450 [facility] RBC Auto (Bld) [#/Vol]on RBC (Bld) [#/Vol] 5.16 10 6/uL 4.70-6.10 [facility] Serum or plasma albumin/glob ulin mass ratioon 12-10-2024 Albumin/Globulin [Mass ratio] 1.0 {ratio} [facility] Serum or plasma anion gap de terminationon 12-10-2024 Anion gap [Moles/Vol] 13.4 [facility] Serum or plasma total choles terol/high density lipoprotein (HDL) cholesterol mass sylvain 12-10-2024 Cholesterol.total/Cho lesterol in HDL [Mass ratio] 5.4 {ratio} [facility] Comment on above: 3.3 - 4.4 LOW RISK4. 4 - 7.1 AVERAGE RISK7.1 - 11.0 MODERATE RISK>11.0 [facility] Laboratory - Chemistry and C hemistry - challengeon 12-05-2024 Bilirubin Ql (U) Negative [facility] Glucose (U) [Mass/Vol] Negative [facility] Ketones Ql (U) Negative [facility] pH (U) 7.0 [pH] [facility] Specific gravity (U) [Rel density] 1.020 [facility] Urobilinogen (U) [Mass/Vol] 0.2 mg/dL [facility] Laboratory - Specimen inform ationon 12-05-2024 Appearance (U) Cloudy [facility] Color (U) Yellow [facility] Laboratory - Urinalysison Leukocyte esterase Test strip Ql (U) 70 [facility] Nitrite Ql (U) Negative [facility] Protein Ql (U) Positive [facility] No Panel Informationon 12-05 Urine Occult Blood Negative [facility] Urine Cultureon 12-05-2024 Bacteria identified Cx Nom (U) No Growth 2 Days PERFORMED BY: [facility] [address] [place] [address] PATHOLOGIST SCREEN EXAMINER AYO SCHAFFER M.D. Normal [facility] Comment on above: Performed By: #### C UU #### [facility] [address] Urine cultureOrdered By: Odalys Elmore on 12-05-2024 Bacteria identified Cx Nom (U) No Growth 2 Days [facility] Basophils Auto (Bld) [#/Vol] on 01-23-2024 Basophils (Bld) [#/Vol] 0.0 10 3/uL 0.0-0.1 [facility] Basophils/100 WBC Auto (Bld) on 01-23-2024 Basophils/100 WBC (Bld) 0.5 % 0.2-2.0 [facility] Cholesterol in LDL Calc [Mas s/Vol]on 01-23-2024 Cholesterol in LDL [Mass/Vol] 153.0 mg/dL [facility] Comment on above: <100 mg/dl [id number] 0-129 mg/dl NEAR OR ABOVE [id number] mg/dl BORDERLINE [id number] mg/dl HIGH>190 mg/dl VERY HIGH Cholesterol in VLDL Calc [Ma ss/Vol]on 01-23-2024 Cholesterol in VLDL [Mass/Vol] 28.4 mg/dL [facility] Eosinophils/100 WBC Auto (Bl d)on 01-23-2024 Eosinophils/100 WBC (Bld) 2.8 % 0.9-7.0 [facility] Erythrocyte distribution wid th Auto (RBC) [Ratio]on 01-23-2024 Erythrocyte distribution width (RBC) [Ratio] 13.7 % 11.0-15.0 [facility] Estimated glomerular filtrat ion rate (GFR) non- Americanon 01-23-2024 GFR/1.73 sq M.predicted among non-blacks MDRD (S/P/Bld) [Vol rate/Area] 55 mL/min/{1.73_m2} Low >=60 [facility] Globulin Calc (S) [Mass/Vol] on 01-23-2024 Globulin (S) [Mass/Vol] 4.3 g/dL [facility] Hematocrit Auto (Bld) [Volum e fraction]on 01-23-2024 Hematocrit (Bld) [Volume fraction] 43.7 % 42.0-54.0 [facility] Hemoglobin [Mass/volume] in Bloodon 01-23-2024 Hemoglobin (Bld) [Mass/Vol] 14.1 g/dL 14.0-18.0 [facility] Laboratory - Chemistry and C hemistry - challengeon 01-23-2024 Albumin [Mass/Vol] 3.7 g/dL 3.4-5.0 [facility] ALP [Catalytic activity/Vol] 66 U/L 46-116 [facility] ALT [Catalytic activity/Vol] 33 U/L 16-63 [facility] AST [Catalytic activity/Vol] 20 U/L 15-37 [facility] Bilirubin [Mass/Vol] 0.7 mg/dL 0.2-1.0 [facility] Calcium [Mass/Vol] 8.7 mg/dL 8.5-10.1 [facility] Chloride [Moles/Vol] 102 mmol/L 98-107 [facility] Cholesterol [Mass/Vol] 216 mg/dL High <=200 [facility] Cholesterol in HDL [Mass/Vol] 35 mg/dL Low 40-60 [facility] Comment on above: > or =60 mg/dl - LOW CARDIOVASCULAR RISK<40 mg/dl - HIGH CARDIOVASCULAR RISK CO2 [Moles/Vol] 28.1 mmol/L 21.0-32.0 [facility] Creatinine [Mass/Vol] 1.42 mg/dL High 0.70-1.30 [facility] GFR/1.73 sq M.predicted MDRD (S/P/Bld) [Vol rate/Area] mL/min/{1.73_m2} >=60 [facility] Glucose [Mass/Vol] 101 mg/dL 74-106 [facility] Magnesium [Mass/Vol] 2.3 mg/dL 1.8-2.4 [facility] Potassium [Moles/Vol] 4.1 mmol/L 3.5-5.1 [facility] Protein [Mass/Vol] 8.0 g/dL 6.4-8.2 [facility] Sodium [Moles/Vol] 140 mmol/L 136-145 [facility] Triglyceride [Mass/Vol] 142 mg/dL <=150 [facility] Urea nitrogen [Mass/Vol] 15.0 mg/dL 7.0-18.0 [facility] Urea nitrogen/Creatinine [Mass ratio] 10.6 mg/mg [facility] Laboratory - Hematology and Cell countson 01-23-2024 Immature granulocytes/100 WBC (Bld) 0.5 % 0.0-0.5 [facility] Leukocytes [#/volume] correc delmer for nucleated erythrocytes in Blood by Automated counon 01-23-2024 WBC corrected for nucl RBC Auto (Bld) [#/Vol] 5.7 10 3/uL 4.0-11.0 [facility] Lymphocytes Auto (Bld) [#/Vo l]on 01-23-2024 Lymphocytes (Bld) [#/Vol] 2.6 10 3/uL 1.2-3.8 [facility] Lymphocytes/100 WBC Auto (Bl d)on 01-23-2024 Lymphocytes/100 WBC (Bld) 44.8 % 20.5-60.0 [facility] MCH Auto (RBC) [Entitic mass ]on 01-23-2024 MCH (RBC) [Entitic mass] 27.4 pg 25.9-34.0 [facility] MCHC Auto (RBC) [Mass/Vol]on 01-23-2024 MCHC (RBC) [Mass/Vol] 32.3 g/dL 29.9-35.2 [facility] MCV Auto (RBC) [Entitic vol] on 01-23-2024 MCV (RBC) [Entitic vol] 85.0 fL 80.0-94.0 [facility] Monocytes Auto (Bld) [#/Vol] on 01-23-2024 Monocytes (Bld) [#/Vol] 0.4 10 3/uL 0.3-0.8 [facility] Monocytes/100 WBC Auto (Bld) on 01-23-2024 Monocytes/100 WBC (Bld) 7.4 % 1.7-12.0 [facility] Neutrophils Auto (Bld) [#/Vo l]on 01-23-2024 Neutrophils (Bld) [#/Vol] 2.5 10 3/uL 1.4-6.5 [facility] Neutrophils/100 WBC Auto (Bl d)on 01-23-2024 Neutrophils/100 WBC (Bld) 44.0 % 43.0-75.0 [facility] No Panel Informationon 01-22 Eosinophils # (Auto) 0.2 10 3/uL 0.0-0.7 [facility] Immature Granulocyte # (Auto) 0.03 10 3/uL 0.00-0.03 [facility] Platelet mean volume Auto (B ld) [Entitic vol]on 01-23-2024 Platelet mean volume (Bld) [Entitic vol] 8.7 fL Low 9.5-13.5 [facility] Platelets Auto (Bld) [#/Vol] on 01-23-2024 Platelets (Bld) [#/Vol] 287 10 3/uL 150-450 [facility] RBC Auto (Bld) [#/Vol]on RBC (Bld) [#/Vol] 5.14 10 6/uL 4.70-6.10 [facility] Serum or plasma albumin/glob ulin mass ratioon 01-23-2024 Albumin/Globulin [Mass ratio] 0.9 {ratio} [facility] Serum or plasma anion gap de terminationon 01-23-2024 Anion gap [Moles/Vol] 14.0 mmol[facility] Serum or plasma total choles terol/high density lipoprotein (HDL) cholesterol mass sylvain 01-23-2024 Cholesterol.total/Cho lesterol in HDL [Mass ratio] 6.2 {ratio} [facility] Comment on above: 3.3 - 4.4 LOW RISK4. 4 - 7.1 AVERAGE RISK7.1 - 11.0 MODERATE RISK>11.0 HIGH RISK Coding Summary.on 03-15-2021 Coding Summary. [id number] Gh0bWw+PGhlYWQ+PE1FV XFdO92lyNMdwO9TM1iEB I4ROSKRTKTWGS0BVD7zr ZJ0UEaoN9VlwnZx EfwrcBEeOZ55JKf1PZF7 qIloHCofeO2mnNNfS1d4 UfNjCK29gD69GIjhMVFl OgW9SvTkxwvgsBQz V7ygZuRxgXQzDua+PHRh YmxlIHdpZHRoPScxMDAl JvRqwHeuZF7bPw9sXPBs LWNvbGxhcHNlOiBj h2riZHKqNLemQH8iaWqe Z1XixPU1VDQqt2o2Tr74 dHI+WMCuMQW9hHcgAJzj u980MvEtj6kdJOK2 qQLzTOdtKQJ8O58zq3W2 IIGdCRLxTKG3mWL9jP3e iJbskaxaH4OatPVuDdY1 RSO3jKRpkG9brGnr cbrqrF7nYeg+T61OZT7X WQXJAR0WHqm2N8KrCaeu dHI+DQ72OJQoZC99uMNt gRIiq7iurBz8PkUi KRAqYVR6bDkvUFxpn9Ry KLVeD76nbVFpo5P1FIVo kCpiqJFnSsMfoMB6lC2o XPhutowsd1idraqw Tikzh5kwys88hI76Z10y UPgoFCIzFEI1RNQeZLSz lEqngg5nxD3wHt9+IDxj u1wpn7ozpBh8PjJz WYTzflGocSjeVSZ6t2Mx Zc78J9TlfUnzp0DdHac0 jq52uDQer6B1eXA2SCaf SVGggX4aFZnsXuP5 HHPeAhJrdV94eGYxQGxh Td7brHeduRqdGV6dWIBq kjwdBKLhwX8kVAMhmELs xWkaYG2cZJVcpkdp j625DkPrWJG6OWWrbBOn W7EccE2wLuSpWVZeHGOx K7TxjJRyUJhzC577SHjr EgV3RBSyfvXaM8Tg SEFblIrkIjH8h8O3Tw5J e2ThbseaOEZ0UCjoVHJ0 FmW6ToRjKgS0E1QhVde5 XJJpfFriHX0mP2Kd QXOvsxtvealrmJU2VOOp ZGXgrN50dSMfKOhxPe3y e9K8o286XYRaWFIqcD91 Or5gcOjwVLBdsXRH fJ7xvqkqk7pcobobBoSl FAKkXLh6JDb7HMGtpOmg NdFhSCT4DlK7TNA2tIKv tS0ceKfqhhnwpJ4f Oyc+O77dnE7eVLW9QTA8 yvoaETRnuhZeDE59XZ55 A1YaAtjvlOSzqCU+PGRp fgNcuIxkAS3xZwAv e7yle1WtCDmeI2ZqYRVd GPteLnf3BFZmNIM2gTE7 uK8sMVKuHHtrc0Q1lEL8 X2SltbNxnn0ro3um YXRnGMpeW70xoHJtk4S8 MBWorIK3UBPhcQqnBzLv mC55Rst+FQEnsLipp0Pj Jdguf6tdl8cehAs2 IjMwJSIgdmFsaWduPSJ0 t8ZpIe75G11gCLliSNOb KQTlDULeUHXzeFeiyd3g cZ2jPm0+PGNvbCB3 mBT2hK0wQTRxPdV1ORwl H130JbHkvLPxKgddq7xb j2xexCd5RfVoNLEejxSh vUuzHXA7u5BdRo45 X79tGDkeVVIpSOWwMJJh UHUgmAwoyq5dwX0qTm1+ BK5yw5hkep87jN25yZZ+ NTGwLWB2cMytOVjj HMEdrA2zSLcsUkV5XOAt ZnAbzF14sYLgZWkmAc7l tQtuwTpiTP0bSHXwualc n696VpXxb7pcZPKl bJLsYBxuEZK1O75zq4M9 DFRoUYKfINS3iKO0nR7h bGlnbjogbGVmdDsgdmVy gJyzQIwiYKduB869 IHRvcDsnPlBhdGllbnQg TzUjFCo4C5CzXkk9WIYz rPlsMC3kdHRoGIexTn2a yZqiySyiMF0dTBTt zguvi625RfDcn2xhINCx nUJyBHrpLEM5V41pb0C7 VXKvFPLmNRC1bRV3qV1q bGlnbjogbGVmdDsg taKnwQijHRtqFPihS629 IHRvcDsnPkJpcnRoIERh gYE0UL76SL55aGFdk4F7 tBO9H3IeBIAjsnfr zmyrsPO2RZDkVTQjhB30 Fy1ghRkuIl0xCIZzJXO7 SGFitGGrV4WkzK5rRjSg ABZgDYVpP2MgsDBs WFpyF790OIoyRkU9ZJPb ahZmE8XyYGAwvFjcKdM0 s7P0Tf0XB6W7OE84GF70 hGJvc3A4uJX5P6Ks EVBffqwagskhgXE2HIZk UKDxsZ13Nm0afMzqGv1i UKBgQLS5QNWioNNhL7Ye vT2bYnKgEPReRMQj O3TlfYSdEBqnX305THmj NmP7ZGKwlcIvP1YgUYXo vKwdMdY9u5M0Iv1FJVe2 II79QY18gYTif2M0 uAR5G6PkVIShiierowdp gNG3LYUrNCTgfP52Ij3u tLddAo3oDRQuJUR5MTZd iMInI4EezE2vRyTn XTAbLVNiX5OwgAKfUVma R630NFanMyW5EKMaopBx N9NmPUTboDcdGgH1l5A8 Mw4YPHZrYQ43FOE7 cPI9OV01VQ90H6QgIunv dGFibGU+PHRhYmxlIHdp ZHRoPScxMDAlJyBzdHls BG2nEx4cYRSjAGNz qHxtuVEmCoZff3adFQGp MUmdVM3gmTqgY9ZhkGY9 ZVXbk5l9Hd53F60sL4Nw dXA+ZFQbyHD4wAS3 fE2mGoJoNbY8IIspV588 HmIeuBYxMblgq9hgn2ne dKg8NdL9KXBsiyNeyMlf IRJ9p7MzNk77F00r IHdpZHRoPSIxNSUiIHZh mNqpav6mvU5eSf9+PGNv aXJ0bAL4bL7sSjEuVjY6 KRjfO484WqQhkUNo Rohfz6mdi8smsAm5CpRb XMPiquNypVbzMYO2r9Ql Ph14P5DoqMbcp8DjOuy9 fp65hKWzo7A9nTC3 Z2DjZITwrzopcQPdbLol YN6bCMGluplaKYOpgQ8k RSUkK1i5TtZgRnN8TBoz P6HprtO2AEGikSQv SXtvOVK1C74uz8V0JACa NAWlPWE4iIM1lJ2arUlx bjogbGVmdDsgdmVydGlj DIfmVZzfU446QVCn hCzuQKBmnY2tQNEsxQSi lEuwOI7nAYFumjrgGpnV C0OaNV5PMXEMFGw7G8Fi Iiq5HJBjeIutGZ0j aPNnDXucMl8krLkoqEuj ER5zGGQnpuwjWCKrhK0d PWUboPTqwRjlQV4fNNUc femtc825SvAoCUT9 JOFjfQHnW4WiqB7dZdHe UDScVCQqZ6MbuHVtRCfv M694MKytJtP3HYBdxbGp K3FlRVAlwAigYjZ0 s2D2Ox4hLE9eEs6fVYxm CO33MN40oNOsg3B2cVJ4 N6SgXWUtnusceuibuPV8 YJYuSYCtmW17oGLt TPodVt6um8Z6c389TCOn WMTvrY77Zf0sqWjvGBRw cXNFtW8wwjroh0ggqxuc HxJbZEOoSEc0MJk7 JZNufTxvItEeTOY5KgS3 ZVA3rOYalS4flQwdxnao aK9cWdj+MzkgWWVhcnM8 Y7OdXwm4SNLxzIrn MV0laMTbUUohWa1dzOqp pFkoPJ5lYDDuzkkbVKDx qU1nHTAapFJmtZneFJ7f XTImsvbie629RmXd HAM0DULzhDNtD9DnjB3j EyNfKFRaDZRdL6FmyZXl WApeJ127IVhgTpQ0FELc giYiC6SyCJQbdVga EoH9b9J0Jz1HIVgwCM52 LV64mYGfs9Z7lWH3P2Be CKImjbdkfjentQY8FCWu UXHsqZ20nSQqRMdf Hx0zd4R5c231HHWtZHTn fJ63Mj1edXjaOZBoxVIN fC1yraxvn9itkeuqTtXj BIAyCQf4PAs8YZEf xAcmLnCcDGA4HlV0PTJ4 eYBhqC2ryHhupwowoD6k Oyc+ZMBzZKYnz1Wnr6Wh WW81KX46F3ZtUrqb dGFibGU+PHRhYmxlIHdp ZHRoPScxMDAlJyBzdHls VW9xOq7mUKBcTLNefUuj eTRkHxUsh1pdLZRe FBlbED5krElaT4NwwJK9 UVYlr1p7Co77D05vC5Pa dXA+UQIiwTS7mHM6wX1m BuAaGkJ9QTqpB758 TlHwpCOfLdljh4cwt1yq dEj2LnXnBIMfnnGqqDld JPW9a2XoKx76D73wSHfv ZHRoPSIyMCUiIHZh kVegsr6wzE5nVj1+PGNv uHX4gMG8rG8fAkToAbJ8 DYjuK613GcHhzKJaNpqa L25fN3UiaKI+PHRy Hph0LTOdeAjxNV4faGPz LYuzXc6dJMP3NrNuCsOv UUyqB4JuPKEhydsixbsu fWE0XUCtXYTycK52 Av8iaHckQp0zKYRjCMF8 ZRIolGLfZ9RhkP8xYhOp GLSxKAKpR5AnfXIrODdj G206JEgcBsT0LSGg ucQvK2ZhXSCvfKovUjD4 y3F2Ke1TwLnjvAHbQG5x OsIdAJx3N9NzItb2JXEk pOmvAN0wvDZwGTjr Hr8ukGmywUdjXP5cSPJk avwhb560JlVge0sdGJLx yBVxVPgsOBG5F60zu9Y9 IVNmDVEkIAQ2zUD4 lD8qdHnptjuwdQXpfUqo thXjkEctJGocHTisK522 DNSplNhuHsKPVcw4H1Iv Coi4FTRmtGbaDQ4q rPGzWLycOs5ovTxiwZkl RP5sGXLawnwnh744GrJa o3zkFTKmdMZqTVruKGQ7 Y37tt8W1XIZlLULb CRL5qLH5tV3dwHpwfaur bGVmdDsgdmVydGljYWwt MNrtS525BZXfkOogLs8O Owa5D7TjAdg5HCFz dPvlIG1glSLxNProCt6u aMoefDwiZF4kJUHdwiun c242JqCns0gbYQCzpARn HVscXJE5N52hv1N6 CDSgPVJkHFG7zNK0oW1f bGlnbjogbGVmdDsgdmVy eIawSFsvAYjyK795GPZu cDsnPlBheWVyOjwv dGQ+AM23uh41E1KmXuhu Sxg4HOWmKKJ2yKF2zP1p IYXbCVypx0S4nYM8Y5Of hpKpxc6vr9ebHMQh ZTog (more content not included)... Normal [facility] Consent for Treatmenton Consent for Treatment [id number] 2#[id number] Normal [facility] COVID-19 ([facility])on 03-08-2021 SARS-CoV-2 (COVID-19) RNA EVANGELISTA+probe Ql (Unsp spec) Detected Abnormal Not Detected [facility] Comment on above: Result Comment: Faxe d to and [facility] 03/08/2021 17:54:52 EDT ALL This test result should be correlated with clinical presentations and medical history by a healthcare provider to determine its clinical significance. This assay was performed by a reverse transcriptase real-time polymerase chain reaction (rt PCR) method on the [employer] system. This test has been authorized only [...] or revoked sooner. Performed By: #### 2 [id number] #### [facility] [address] [place] [id number] SARS-CoV-2 (COVID-19) RNA EVANGELISTA+probe Ql (Unsp spec) Pass Normal Pass [facility] Comment on above: Performed By: #### 2 [id number] #### [facility] [address] [place] [address] Specimen source Nom (Unsp spec) Nasal Normal [facility] Comment on above: Performed By: #### 2 [id number] #### [facility] [address] [place] [address] COVID-19 ([facility])on 03-07-2021 Employed in Healthcare Unknown Normal [facility] Comment on above: Performed By: #### 2 [id number] #### [facility] [address] [place] [address] First Test Unknown Normal [facility] Comment on above: Performed By: #### 2 [id number] #### [facility] [address] [place] [address] Hospitalized? Unknown Normal [facility] Comment on above: Performed By: #### 2 [id number] #### [facility] [address] [place] [address] ICU Unknown Normal [facility] Comment on above: Performed By: #### 2 [id number] #### [facility] [facility] [address] [place] [address] ? NO Normal [facility] Comment on above: Performed By: #### [id number] #### [facility] [address] [place] [address] Resides in a Congregate Care Setting Unknown Normal [facility] Comment on above: Performed By: #### 2 [id number] #### [facility] [address] [place] [address] Symptomatic as defined by CDC YES Normal [facility] Comment on above: Performed By: #### 2 [id number] #### [facility] [address] [place] [address] Vital Signs Date Time Vital Sign Value Performing Clinician Facility 02-02-2025 14:43-0400 Body height 191.77 cm Ana Elmore APRN Work Phone: [facility] 02-02-2025 14:43-0400 Body mass index (BMI) [Ratio] 34.2 kg/m2 Ana Alegriaernestinaericajosé miguel WEB MARKETING COORDINATOR Work Phone: [facility] 02-02-2025 14:43-0400 Body temperature 101.9 [degF] Ana Alegriaizabella WEB MARKETING COORDINATOR Work Phone: [facility] 02-02-2025 14:43-0400 Body weight 126.15 kg Ana Alegriaernestinaericajosé miguel WEB MARKETING COORDINATOR Work Phone: [facility] 02-02-2025 14:43-0400 Diastolic blood pressure 89 mm[Hg] Ana Alegriaizabella WEB MARKETING COORDINATOR Work Phone: [facility] 02-02-2025 14:43-0400 Heart rate 124 /min Ana Alegriaizabella WEB MARKETING COORDINATOR Work Phone: [facility] 02-02-2025 14:43-0400 Respiratory rate 18 /min Ana Alegriaernestinaericajosé miguel WEB MARKETING COORDINATOR Work Phone: [facility] 02-02-2025 14:43-0400 SaO2% (BldA) [Mass fraction] 96 % Ana Kumarjosé miguel WEB MARKETING COORDINATOR Work Phone: [facility] 02-02-2025 14:43-0400 Systolic blood pressure 138 mm[Hg] Ana Alegriaizabella WEB MARKETING COORDINATOR Work Phone: [facility] 12-05-2024 14:32-0400 Body height 191.77 cm [facility] 12-05-2024 14:32-0400 Body mass index (BMI) [Ratio] 35.6 kg/m2 [facility] 12-05-2024 14:32-0400 Body temperature 97.7 [degF] [facility] 12-05-2024 14:32-0400 Body weight 130.86 kg [facility] 12-05-2024 14:32-0400 Diastolic blood pressure 82 mm[Hg] [facility] 12-05-2024 14:32-0400 Heart rate 84 /min [facility] 12-05-2024 14:32-0400 SaO2% (BldA) [Mass fraction] 94 % [facility] 12-05-2024 14:32-0400 Systolic blood pressure 122 mm[Hg] [facility] 02-23-2024 15:10-0400 Body height 191.77 cm [facility] 02-23-2024 15:10-0400 Body mass index (BMI) [Ratio] 33.9 kg/m2 [facility] 02-23-2024 15:10-0400 Body weight 124.73 kg [facility] 02-23-2024 15:10-0400 Diastolic blood pressure 72 mm[Hg] [facility] 02-23-2024 15:10-0400 Heart rate 94 /min [facility] 02-23-2024 15:10-0400 SaO2% (BldA) [Mass fraction] 98 % [facility] 02-23-2024 15:10-0400 Systolic blood pressure 124 mm[Hg] [facility] 01-26-2024 15:29-0400 Body height 191.77 cm [facility] 01-26-2024 15:29-0400 Body mass index (BMI) [Ratio] 34.9 kg/m2 [facility] 01-26-2024 15:29-0400 Body weight 128.36 kg [facility] 01-26-2024 15:29-0400 Diastolic blood pressure 74 mm[Hg] [facility] 01-26-2024 15:29-0400 Heart rate 83 /min [facility] 01-26-2024 15:29-0400 SaO2% (BldA) [Mass fraction] 99 % [facility] 01-26-2024 15:29-0400 Systolic blood pressure 122 mm[Hg] [facility] 12-07-2023 09:21-0400 Body height 191.77 cm [facility] 12-07-2023 09:21-0400 Body mass index (BMI) [Ratio] 34.4 kg/m2 [facility] 12-07-2023 09:21-0400 Body weight 126.55 kg [facility] 12-07-2023 09:21-0400 Diastolic blood pressure 82 mm[Hg] [facility] 12-07-2023 09:21-0400 Heart rate 77 /min [facility] 12-07-2023 09:21-0400 SaO2% (BldA) [Mass fraction] 97 % [facility] 12-07-2023 09:21-0400 Systolic blood pressure 128 mm[Hg] [facility] 10-22-2023 14:25-0400 Body height 191.77 cm [facility] 10-22-2023 14:25-0400 Body mass index (BMI) [Ratio] 35 kg/m2 [facility] 10-22-2023 14:25-0400 Body weight 128.82 kg [facility] 10-22-2023 14:25-0400 Diastolic blood pressure 84 mm[Hg] [facility] 10-22-2023 14:25-0400 Heart rate 95 /min [facility] 10-22-2023 14:25-0400 SaO2% (BldA) [Mass fraction] 96 % [facility] 10-22-2023 14:25-0400 Systolic blood pressure 124 mm[Hg] [facility] Encounters Encounter Date Encounter Type Care Provider Facility Start: 02-02-2025 End: 02-02-2025 ambulatory Ana Elmore APRN Work Phone: [facility] Work Phone: Start: 02-02-2025 End: 02-02-2025 Patient encounter procedure Joselito Cintron MD -[facility] Work Phone: Start: 12-10-2024 Non-patient / Non-visit Edwin Elmore APRN RATTAN WORKER -[facility] Work Phone: Start: 12-05-2024 End: 12-05-2024 ambulatory Ana Elmore [facility] Work Phone: Start: 12-05-2024 End: 12-05-2024 Departed Referred Ana Catarina RODRIGUEZ Work Phone: [facility] [place] Work Phone: Start: 12-05-2024 End: 12-05-2024 ambulatory [facility] Work Phone: Start: 12-05-2024 End: 12-05-2024 Encounter for general adult medical examination without abnormal findings [facility] Start: 12-05-2024 End: 12-05-2024 Patient encounter procedure [facility] Work Phone: Start: 12-05-2024 End: 12-05-2024 Patient encounter status Ana Elmore APRN [facility] Start: 02-23-2024 End: 02-23-2024 ambulatory [facility] Work Phone: Start: 02-23-2024 End: 02-23-2024 Patient encounter procedure [facility] Work Phone: Start: 01-26-2024 End: 01-26-2024 ambulatory [facility] Work Phone: Start: 01-26-2024 End: 01-26-2024 Patient encounter procedure [facility] Work Phone: Start: 01-23-2024 Non-patient / Non-visit [facility] Work Phone: Start: 12-07-2023 End: 12-07-2023 ambulatory [facility] Work Phone: Start: 12-07-2023 End: 12-07-2023 Patient encounter procedure [facility] Work Phone: Start: 10-22-2023 Patient encounter status [facility] Start: 10-22-2023 End: 10-22-2023 ambulatory [facility] Work Phone: Start: 10-22-2023 End: 10-22-2023 Encounter for general adult medical examination without abnormal findings [facility] Start: 10-22-2023 End: 10-22-2023 Patient encounter procedure [facility] Work Phone: Procedures Date Procedure Procedure Detail Performing Clinician Start: 12-05-2024 Urine culture Ana Elmore APRN Work Phone: Plan of Treatment Date Care Activity Detail Author Start: 12-05-2024 Urine culture [facility] Start: 12-05-2024 Bacteria identified in Urine by Culture Urine Culture [facility] Complement C3 [Mass/ volume] in Serum or Plasma [facility] Complement C4 [Mass/ volume] in Serum or Plasma [facility] Comprehensive metabo lic 1999 panel - Serum or Plasma [facility] Comprehensive metabo lic 1999 panel - Serum or Plasma [facility] Renal function 2000 panel - Serum or Plasma [facility] Payers Date Payer Category Payer Self-pay 2024 Unknown [id number] Unknown [id number] Social History Date Type Detail Facility Start: 10-22-2023 End: 12-05-2024 Tobacco smoking status NHIS Ex-smoker (finding) [facility] Start: 1980 Sex Assigned At Male F [facility] Start: 12-05-2024 End: 12-06-2024 Sex Male (finding) [facility] Evaluation note 12-05-2024 Note Date & Type Note Facility 12-05-2024 Evaluation note Diagnosis Onset Date Resolution Mixed hyperlipidemia acute [facility]pri [facility] 2024 2:19pm Obesity, Class II, BMI 35-39.9 acute December 05, 2024 2:19pm Wellness examination acute Apri [facility] 2024 2:19pm [facility] Work Phone: Evaluation note 12-05-2024 Note Date & Type Note Facility 12-05-2024 Evaluation note Diagnosis Onset Date Resolution Abnormal urine odor acute December 05, 2024 2:19pm Mixed hyperlipidemia acute Apri [facility] 2024 2:19pm Obesity, Class II, BMI 35-39.9 acute December 05, 2024 2:19pm Wellness examination acute Apri l 2024 2:19pm Adult BMI 33.0-33.9 kg/sq m acute February 02, 2025 2:38pm CKD (chronic kidney disease) stage 3, GFR 30-59 ml/min acute February 02, 2025 2:38pm Mixed hyperlipidemia acute February 02, 2025 2:38pm Proteinuria acute February 02 2:38pm Sleep apnea acute February 02 2:38pm [facility] Work Phone: Evaluation note Note Date & Type Note Facility Evaluation note Diagnosis Onset Date Back pain acute Bilateral leg cramps acute Muscle spasm acute Screening for deficiency anemia acute Screening for lipid disorders acute Screening for metabolic disorder acute Wellness examination acute [facility] Work Phone: Evaluation note Note Date & Type Note Facility Evaluation note Diagnosis Onset Date Back pain acute Bilateral leg cramps acute BMI 35.0-35.9,adult acute Muscle spasm acute Screening for deficiency anemia acute Screening for lipid disorders acute Screening for metabolic disorder acute Wellness examination acute Maxillary sinusitis acute [facility] Work Phone: Evaluation note Note Date & Type Note Facility Evaluation note Diagnosis Onset Date Loud snoring acute Maxillary sinusitis acute Ruptured ear drum acute BMI 34.0-34.9,adult acute Daytime somnolence acute Frequent nocturnal awakening acute Loud snoring acute Mixed hyperlipidemia acute Obese acute [facility] Work Phone: Evaluation note Note Date & Type Note Facility Evaluation note Diagnosis Onset Date Resolution Mixed hyperlipidemia acute Apri l 2024 2:19pm Obesity, Class II, BMI 35-39.9 acute December 05, 2024 2:19pm Wellness examination acute Apri l 2024 2:19pm [facility] Work Phone: Reason for referral (narrative) Note Date & Type Note Facility Reason for referral (narrative) No reason for referral information available [facility] Work Phone: Summary Purpose Family History Relationship Condition Age at Onset Recorded Date/T candace mother Disorder of thyroid Unknown Advance Directives Advance Directive Response Recorded Date/ Time Advance Directives No October 14 5:30pm Chief Complaint and Reason for Visit [...] Loud snoring Mixed hyperlipidemia Obese Chief Complaint Admit Date wellness December 05, 2024 2:1 9pm Reason for Visit Admit Date Mixed hyperlipidemia December 05, 2024 2: 19pm Obesity, Class II, BMI 35-39.9 November 2:19pm Wellness examination December 05, 2024 2: 19pm Chief Complaint Admit Date wellness December 05, 2024 2:1 9pm R82.90 December 05, 2024 3:5 1pm disorder of kidney February 02, 2025 2:38 pm Reason for Visit Admit Date Abnormal urine odor December 05, 2024 2:1 9pm Mixed hyperlipidemia December 05, 2024 2: 19pm Obesity, Class II, BMI 35-39.9 November 2:19pm Wellness examination December 05, 2024 2: 19pm Adult BMI 33.0-33.9 kg/sq m February 02, 2 025 2:38pm CKD (chronic kidney disease) stage 3, GF R 30-59 ml/min February 02, 2025 2:38pm Mixed hyperlipidemia February 02, 2025 2:3 8pm Proteinuria February 02, 2025 2:38 pm Sleep apnea February 02, 2025 2:38 pm Additional Source Comments (unrecognized sect ion and content) No Status Records FoundNo Status Records Found INFORMATION SOURCE (unrecogn ized section and content) DATE CREATED AUTHOR 03/16/2021 [facility] DATE CREATED AUTHOR AUTHOR'S ORGANIZ ATION 12/18/2024 [facility] Care Teams (unrecognized sec tion and content) Team Status: Active Member Role Status Dates Ana Elmore APRN BUSINESS SERVICES TECH-C Primary Care Provider Active Team Status: Inactive Member Role Status Dates Ana Elmore APRN BUSINESS SERVICES TECH-C Primary Care Provider, Attending Provider Active Start: October 22, 2023 End: October 22, 2023 Team Status: Inactive Member Role Status Dates Ana Elmore APRN BUSINESS SERVICES TECH-C Primary Care Provider, Attending Provider Active Start: December 07, 2023 End: December 07, 2023 Team Status: Active Member Role Status Dates Ana Elmore APRN BUSINESS SERVICES TECH-C Primary Care Provider, Attending Provider Active Start: January 23, 2024 Team Status: Inactive Member Role Status Dates Ana Elmore APRN BUSINESS SERVICES TECH-C Primary Care Provider, Attending Provider Active Start: January 26, 2024 End: January 26, 2024 Team Status: Inactive Member Role Status Dates Ana Elmore APRN BUSINESS SERVICES TECH-C Primary Care Provider, Attending Provider Active Start: February 23, 2024 End: February 23, 2024 Team Status: Inactive Member Role Status Dates Ana Elmore APRN BUSINESS SERVICES TECH-C Primary Care Provider, Attending Provider Active Start: December 05, 2024 End: December 05, 2024 Team Status: Inactive Member Role Status Dates Ana Elmore APRN BUSINESS SERVICES TECH-C Attending Provider Act adarsh Start: December 05, 2024 End: December 05, 2024 Team Status: Inactive Member Role Status Dates Ana Elmore APRN BUSINESS SERVICES TECH-C Primary Care Provider Active Start: December 05, 2024 End: December 05, 2024 Ana MICHAEL Elmore BUSINESS SERVICES TECH-C Attending Provider Act adarsh Start: December 05, 2024 End: December 05, 2024 Team Status: Inactive Member Role Status Dates Ana MICHAEL Elmore BUSINESS SERVICES TECH-C Attending Provider Act adarsh Start: December 05, 2024 End: December 05, 2024 PHYSICIAN NO FAMILY Primary Care Provider Active Start: December 05, 2024 End: December 05, 2024 Team Status: Active Member Role Status Dates PHYSICIAN NO FAMILY Primary Care Provider Active Start: December 10, 2024 Ana MICHAEL Elmore BUSINESS SERVICES TECH-C Attending Provider Act adarsh Start: December 10, 2024 Team Status: Inactive Member Role Status Dates Ana Elmore APRN BUSINESS SERVICES TECH-C Primary Care Provider Active Start: February 02, 2025 End: February 02, 2025 Joselito Cintron MD Attending Provider Active Start : February 02, 2025 End: February 02, 2025 Goals (unrecognized section and content) Goals may [...] BE BASED ON THE PRIMARY CLINICAL RECORDS. [facility]. provides no warranty or guarantee of the accuracy or completeness of information in this document.
[2025-03-04 07:10] LABS: Glucose Urine UA NEGATIVE (NEGATIVE)
[2025-03-04 07:16] LABS: Protein Creatinine Ratio Urine 0.19; Total Protein Urine Random 15.5 mg/dL (<=11.9)
[2025-03-04 07:36] LABS: Cast Seen? NONE SEEN #/LPF (NONE SEEN); Crystals Seen? None Seen #/HPF (None Seen)
[2025-03-04 07:47] LABS: Albumin Level 4.0 g/dL (3.4-5.0); Anion Gap 13.4; Blood Urea Nitrogen 16.0 mg/dL (7.0-18.0); Calcium 9.4 mg/dL (8.5-10.1); Carbon Dioxide 27.7 mmol/L (21.0-32.0); Chloride 104 mmol/L (98-107); Estimated GFR (African America >60 (>=60 mL/min/1.73m^2); Estimated GFR (Non-African Ame 56 (>=60 mL/min/1.73m^2); Glucose 109 mg/dL (74-106); Magnesium 2.1 mg/dL (1.8-2.4); Potassium 4.1 mmol/L (3.5-5.1); Sodium 141 mmol/L (136-145)
[2025-03-06 16:08] LABS: Antinuclear Antibodies, IFA Positive (.)
[2025-03-07 20:12] LABS: Anti-MPO Antibodies <0.2 units (0.0-0.9); Anti-PR3 Antibodies <0.2 units (0.0-0.9)
== END 2025-03-04 06:49 | disposition home or self-care (01) ==
PROVIDERS: Family Provider Family Medicine; PCP Nurse Practitioner Family; Visit Provider Internal Medicine
DX: G47.30 Sleep apnea, unspecified (principal); Z68.33 Body mass index [BMI] 33.0-33.9, adult; E78.2 Mixed hyperlipidemia; N18.30 Chronic kidney disease, stage 3 unspecified; R80.9 Proteinuria, unspecified
CPT/HCPCS: 36415; 80069; 81001; 82570; 83516; 83735; 84156; 86037; 86038; 86160